=== PATIENT | male | born 1970 | race Hispanic/Latino ===

== ENCOUNTER 2022-07-19 21:32 | Emergency (ER) | payer MEDICAID ==
[~2022-07-19] VITALS: Ht 154.9 cm; Wt 76.2 kg
[2022-07-19] MEDS ORDERED: CEFTRIAXONE 2GM VIAL IVPB ONE (23:00)
[2022-07-19] MEDS ORDERED: 0.9%NACL 1000ML 1,000 ML IV ONE (23:00)
[2022-07-19 23:55] LABS: BASOPHILS % (AUTO) 0.5 % (0.0-5.0); EOSINOPHILS % (AUTO) 2.6 % (0.0-8.0); HEMATOCRIT 32.7 % (42-54); LYMPHOCYTES % (AUTO) 31.3 % (21.0-51.0); MEAN CORPUSCULAR HEMOGLOBIN 26.1 pg (27.0-33.0); MEAN CORPUSCULAR HGB CONC 30.3 g/dL (32.0-36.0); MEAN CORPUSCULAR VOLUME 86.1 fL (79-99); MONOCYTES % (AUTO) 8.6 % (3.0-13.0); NEUTROPHILS % (AUTO) 56.7 % (40.0-77.0); PLATELET COUNT (AUTO) 200 K/uL (130-400); RED CELL DISTRIBUTION WIDTH 17.4 % (11.0-15.5); WHITE BLOOD COUNT (AUTO) 5.7 K/uL (4.8-10.8)
[2022-07-20 00:13] LABS: CARBON DIOXIDE 19 mmol/L (21-32); CHLORIDE 119 mmol/L (101-111); CREATININE 1.9 mg/dL (0.5-1.5); GLOMERULAR FILTR. RATE CALC 43 mL/min (>90); GLUCOSE,RANDOM 123 mg/dL (70-105); POTASSIUM 3.7 mmol/L (3.5-5.1); SODIUM SERUM 146 mmol/L (136-145); UREA NITROGEN, BLOOD 24 mg/dL (7-18)
[2022-07-20] MEDS ORDERED: SULF1TAB42 PO (00:44)
[2022-07-20] MEDS ORDERED: CEPH500B PO (00:44)
[2022-07-20] MEDS ORDERED: LEVO50TA4 PO (00:44)
[2022-07-20 01:49] VITALS: BP 142/75
== END 2022-07-20 02:07 | disposition home or self-care (01) ==
LOC: EDH 21:32
DX: L89.303 Pressure ulcer of unspecified buttock, stage 3 (principal); E11.9 Type 2 diabetes mellitus without complications; E03.9 Hypothyroidism, unspecified; E78.00 Pure hypercholesterolemia, unspecified; F17.200 Nicotine dependence, unspecified, uncomplicated; I10 Essential (primary) hypertension; Z79.899 Other long term (current) drug therapy
CPT/HCPCS: 99284; 96365; 84443; 83735; 80048; 85025; 87070; 87076; 87077 ×3; 87186 ×3; 82010; 36415; J7030; J0696